=== PATIENT | male | born 1970 | race Hispanic/Latino ===

== ENCOUNTER 2017-11-29 15:34 | Emergency (ER) | payer SELFPAY ==
[2017-11-29] MEDS ORDERED: BOOSTRIX IM ONE (16:33)
[2017-11-29] MEDS ORDERED: KEPPRA 1,000 MG/NS 0.75% 100ML 1,000 MG/100 ML BAG IV ONE (16:33)
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
[2017-11-29 17:02] LABS: Hematocrit 40.8 % (35.5-45.6); Hemoglobin 14.2 gm/dl (11.8-15.2); Mean Platelet Volume 9.3 fl (6-12); Red Blood Count 4.1 M/mm3 (3.65-5.03)
[2017-11-29 17:06] LABS: BUN/Creatinine Ratio 6; Blood Urea Nitrogen 5 mg/dL (9-20); Calcium 8.8 mg/dL (8.4-10.2); Hemolysis Index 17
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
[2017-11-29 18:46] LABS: Bilirubin,Urine NEG (Negative); Blood,Urine NEG (Negative); Color,Urine Straw (Yellow); Protein,Urine <15 mg/dL mg/dL (Negative); Urobilinogen,Urine < 2.0 mg/dL (<2.0)
[2017-11-29] MEDS ORDERED: DepaCON 500 MG in NACL 0.9% 100 ML IV ONE (19:22)
[2017-11-29 20:17] VITALS: BP 131/74
== END 2017-11-29 20:16 | disposition home or self-care (01) ==
LOC: ED 15:34
DX: R56.9 Unspecified convulsions (principal); S00.81XA Abrasion of other part of head, initial encounter; Z90.49 Acquired absence of other specified parts of digestive tract; W22.8XXA Striking against or struck by other objects, initial encounter; Y93.89 Activity, other specified; Y99.8 Other external cause status; Y92.488 Other paved roadways as the place of occurrence of the external cause
CPT/HCPCS: 36415; 70450; 70486; 80048; 80164; 80177; 81001; 82550; 82962; 85027; 90471; 90715; 96365; 96375; 99285; J1953

== ENCOUNTER 2020-02-03 02:10 | Emergency (ER) | payer MEDICAID ==
[2020-02-03] MEDS ORDERED: MORPHINE 4 MG/1 ML INJ IV ONE (02:37)
--- NOTE | 2020-02-03 02:39 | Emergency Department Report ---
HPI - General Chief Complaint: Extremity Injury, Upper Time Seen by Provider: 02/03/20 02:17 - HPI HPI: This is a 49-year-old male who presents to the emergency department with a complaint of right shoulder pain and suspected shoulder dislocation. The patient rolled over in his bed and suddenly his shoulder feels like it went out of place and he has been having significant pain. He does have a history of previous and recurrent shoulder dislocations to that right side. He said that he last had a shoulder dislocation about 2 weeks ago and had it reduced at [facility]. He also has a history of epilepsy. He has not taken anything for his symptoms prior to presentation. He is right-hand dominant. ED Past Medical Hx - Past Medical History Previous Medical History?: Yes Hx Seizures: Yes (Epilepsy) Additional medical history: Multiple RT shoulder dislocations - Surgical History Past Surgical History?: Yes Additional Surgical History: appendectomy, R. foot - Social History Smoking Status: Current Every Day Smoker - Medications Home Medications: Home Medications Medication Instructions Recorded Confirmed Last Taken Type Valproic Acid 1,000 mg PO BID #160 capsule 11/29/17 Unknown Rx Valproic Acid 750 mg PO QDAY #90 capsule 11/29/17 Unknown Rx ED Review of Systems ROS: Stated complaint: RT SHOULDER DISLOCATION Other details as noted in HPI Comment: All other systems reviewed and negative Constitutional: denies: chills, fever Eyes: denies: eye pain, vision change ENT: denies: ear pain, throat pain Respiratory: denies: cough, shortness of breath Cardiovascular: denies: chest pain, palpitations Gastrointestinal: denies: abdominal pain, vomiting Genitourinary: denies: dysuria, discharge Musculoskeletal: arthralgia. denies: back pain Skin: denies: rash, lesions Neurological: denies: headache, weakness Physical Exam - Physical Exam Vital Signs: Vital Signs 02/03/20 02:18 Temperature 97.8 F Pulse Rate 70 Respiratory 16 Rate Blood Pressure 130/85 O2 Sat by Pulse 97 Oximetry Physical Exam: GENERAL: The patient is well-developed well-nourished. HENT: Normocephalic. Atraumatic. Patient has moist mucous membranes. EYES: Extraocular motions are intact. NECK: Supple. Trachea is midline. CHEST/LUNGS: Clear to auscultation. There is no respiratory distress noted. HEART/CARDIOVASCULAR: Regular. There is no tachycardia. ABDOMEN: Abdomen is soft, nontender. Patient has normal bowel sounds. SKIN: Skin is warm and dry. NEURO: The patient is awake, alert, and oriented. The patient is cooperative. Normal speech. MUSCULOSKELETAL: There is tenderness to palpation of the right shoulder. He is holding his right upper extremity and internal rotation against his body. Decreased range of motion of the right upper extremity secondary to pain in the right shoulder. Radial pulse +2/4 and capillary refill less than 2 seconds to the affected right upper extremity. ED Course Vital Signs 02/03/20 02:18 Temperature 97.8 F Pulse Rate 70 Respiratory 16 Rate Blood Pressure 130/85 O2 Sat by Pulse 97 Oximetry - Moderate Sedation Indications: fracture/dislocation redu ASA Class: I Mallampati Airway Score: 1 Time of Last PO Intake: 17:00 Preparation: monitoring engineer applied, pulse oximeter, capnometry used, supplemental O2 applied, reversal agents at bedside, suction/airway equipment at bedside, IV secured Ketamine: IV Ketamine Dose: 30 IV Propofol Dose (mgs): 120 Complications: none Patient Tolerated Procedure: well - Orthopedic Joint Reduction Joint #1 Consent Obtained: written consent Time Out Performed: Yes Side: right Joint Reduction Location: shoulder Analgesia: moderate sedation Shoulder Technique Used (if applicable): traction/counter-traction, external rotation Post-Reduction Neuro Exam: intact Post-Reduction Vascular Exam: intact Post Reduction X-Ray Obtained: Yes Post Reduction X-Ray Results: reduced Splint Applied: Yes Patient Tolerated Procedure: well ED Medical Decision Making - Radiology Data Radiology results: image reviewed interpreted by me: Shoulder x-ray #1 and #2 show an anterior dislocation of the right shoulder. Shoulder x-ray #3 shows appropriate reduction of the humeral head into the glenohumeral joint. - Medical Decision Making Patient presents with a right shoulder dislocation. He has a history of recurrent dislocations. He is neurovascularly intact. X-ray of the right shoulder confirms an anterior right shoulder dislocation. The patient was given moderate sedation. Using a combination of tractioncountertraction, and external rotation, I was able to successfully reduce the humeral head back into the glenohumeral joint. The patient was placed in a shoulder immobilizer and remains neurovascularly intact. Post reduction x-ray confirms appropriate redu ction of the dislocation. The patient was monitored until he was back to his normal baseline mental status after the moderate sedation. He is calling for a ride to come and pick him up since he did receive moderate sedation. He will remain in the shoulder immobilizer until follow-up with his orthopedist. Critical Care Time: No Critical care attestation.: If time is entered above; I have spent that time in minutes in the direct care of this critically ill patient, excluding procedure time. ED Disposition Clinical Impression: Dislocation of shoulder, right, closed Qualifiers: Encounter type: initial encounter Qualified Code(s): S43.004A - Unspecified dislocation of right shoulder joint, initial encounter Hypertension Qualifiers: Hypertension type: essential hypertension Qualified Code(s): I10 - Essential (primary) hypertension Disposition: TO HOME OR SELFCARE Is pt being admited?: No Condition: Stable Instructions: Shoulder Dislocation (ED), Moderate Sedation (ED), Hypertension (ED) Additional Instructions: Please follow-up with your orthopedist in the next few days. Remain in the shoulder immobilizer until follow-up with the orthopedist. Return to the emergency department with any worsening of your symptoms, new or concerning symptoms not addressed during this current emergency department visit, or with any acute distress. Referrals: Orthopedist, Your [Other] - 2-3 Days Time of Disposition: 04:39
--- NOTE | 2020-02-03 02:56 | XRay Report ---
RIGHT SHOULDER 2 VIEWS INDICATION / CLINICAL INFORMATION: Right shoulder dislocation. COMPARISON: None available. FINDINGS: BONES / JOINT(S): There is anterior, inferior and medial displacement of the humeral head in relation ship to the glenoid. No acute fracture. Mild degenerative changes involving the acromioclavicular otoniel nt. SOFT TISSUES: No significant abnormality. ADDITIONAL FINDINGS: The visualized right lung is clear. IMPRESSION: Anterior dislocation of the right shoulder. Signer Name: Arpit Hinkle MD Signed: 02/03/2020 2:51 AM Workstation Name: [id number]
[2020-02-03] MEDS ORDERED: propofoL 200 MG/20 ML VIAL IV ONE ×4 (03:03→03:54)
[2020-02-03] MEDS ORDERED: SODIUM CHLORIDE 0.9% 1000 ML 1,000 ML IV ONE (03:03)
[2020-02-03] MEDS ORDERED: KETAMINE 500 MG/5 ML VIAL MDV IV ONE (03:03)
--- NOTE | 2020-02-03 04:02 | XRay Report ---
RIGHT SHOULDER 1 VIEW 3:38 AM INDICATION / CLINICAL INFORMATION: Post reduction.. COMPARISON: Earlier today at 2:34 AM. FINDINGS: There is persistent anterior dislocation of the right shoulder, unchanged since the earlier study. No new abnormality is seen. Signer Name: Arpit Hinkle MD Signed: 02/03/2020 3:58 AM Workstation Name: [id number]
--- NOTE | 2020-02-03 04:22 | XRay Report ---
RIGHT SHOULDER 1 VIEW 3:52 AM INDICATION / CLINICAL INFORMATION: Post reduction. COMPARISON: Earlier today at 3:38 AM. FINDINGS: The previously described dislocation has been reduced. Narrowing of the distance between the humeral head and undersurface of the acromion raises the possibility of a rotator cuff tear. There are hypert rophic changes are noted along the lateral aspect of the humeral neck. No acute fracture or other abn ormality. Signer Name: Arpit Hinkle MD Signed: 02/03/2020 4:18 AM Workstation Name: [id number]
[2020-02-03 05:02] VITALS: BP 129/84
== END 2020-02-03 05:53 | disposition home or self-care (01) ==
LOC: ED 02:10
DX: S43.004A Unspecified dislocation of right shoulder joint, initial encounter (principal); I10 Essential (primary) hypertension; R56.9 Unspecified convulsions; F17.200 Nicotine dependence, unspecified, uncomplicated; Z90.49 Acquired absence of other specified parts of digestive tract; Z79.899 Other long term (current) drug therapy; X58.XXXA Exposure to other specified factors, initial encounter; Y93.89 Activity, other specified; Y92.89 Other specified places as the place of occurrence of the external cause; Y99.8 Other external cause status
CPT/HCPCS: 23655; 73020; 73030; 96361; 96374; 99284; J2270; J2704; J7030; 96375; 96376